=== PATIENT | female | born 2000 | race Caucasian/White ===

== ENCOUNTER 2021-07-31 16:37 | Outpatient (CLI) | payer OTHER ==
[~2021-07-31 16:37] MED LIST: ALBUTEROL HFA INH; CETI10TA76 PO; MONT10TA17 PO; MULT-658 PO; NORE-66 PO; [UNRECOGNIZED DRUG - OTHER]
== END 2021-07-31 23:59 | disposition home or self-care (01) ==
LOC: STAR 16:37
PROVIDERS: ATTEND Otolaryngology
DX: Z02.9 Encounter for administrative examinations, unspecified (principal)

== ENCOUNTER 2021-08-05 08:15 | Day surgery (SDC) | payer OTHER ==
[~2021-08-05] VITALS: Ht 172.7 cm; Wt 96.1 kg
[~2021-08-05 08:15] MED LIST changes: +BACITRACIN OINT 500U/GM, 15 GM ONE; +EPINEPHRINE 1 MG/ML, 1ML ONE; +EPINEPHRINE TOPICAL SOLN 1 MG/ML, 30ML ONE; +FENTANYL PF 250 MCG/5ML ONE; +FLUORESCEIN SODIUM 500 MG/5 ML ONE; +LIDOCAINE/PF 1%, 30ML ONE; +MIDAZOLAM 1 MG/ML, 2ML ONE; +OXYMETAZOLINE NASAL SPRAY 0.05%,30ML ONE
[2021-08-05] MEDS ORDERED: PROPOFOL 50 ML ONE ×4 (08:25→11:39)
[2021-08-05 08:53] VITALS: BP 126/91
[2021-08-05 08:58] LABS: HCG UR SG 1.023 (1.003-1.030)
[2021-08-05] MEDS ORDERED: CHLORHEXIDINE 15 ML UDC PO ONE (09:00)
[2021-08-05] MEDS ORDERED: LACTATED RINGERS 1,000 ML IV SCH (09:00)
[2021-08-05] MEDS ORDERED: REMIFENTANIL 2 MG ONE (11:03)
[2021-08-05] MEDS ORDERED: MEPERIDINE/PF 25MG/0.5ML IVPush PRN (12:00)
[2021-08-05] MEDS ORDERED: FENTANYL PF 100 MCG/2ML IV PRN (12:00)
[2021-08-05] MEDS ORDERED: ACETAMINOPHEN 325 MG TABLET PO PRN (12:00)
[2021-08-05] MEDS ORDERED: MIDAZOLAM 1 MG/ML, 2ML IV PRN (12:00)
[2021-08-05] MEDS ORDERED: LABETALOL 5MG/ML, 20ML IV PRN (12:00)
[2021-08-05] MEDS ORDERED: hydrALAzine 20 MG/ML, 1ML IV PRN (12:00)
[2021-08-05] MEDS ORDERED: ONDANSETRON 2MG/ML, 2ML IVPush PRN (12:00)
[2021-08-05] MEDS ORDERED: PROMETHAZINE 25 MG/ML, 1ML IVPush PRN (12:00)
[2021-08-05] MEDS ORDERED: METHOCARBAMOL 1,000 MG in DEXTROSE 5% 100 ML IV PRN (12:00)
[2021-08-05] MEDS ORDERED: HALOPERIDOL 5 MG/ML IV PRN (12:00)
[2021-08-05] MEDS ORDERED: HYDROmorphone 1 MG/ML, 1ML INJ IVPush PRN (12:00)
[2021-08-05] MEDS ORDERED: FENTANYL PF 100 MCG/2ML ONE (12:37)
[2021-08-05] MEDS ORDERED: OXYcodone 5 MG/5 ML ORAL.SOL UDC ONE (12:37)
[2021-08-05] MEDS: OXYcodone 5 MG/5 ML ORAL.SOL UDC PO PRN ×2 (12:48→13:08)
== END 2021-08-05 14:20 | disposition home or self-care (01) ==
LOC: OR 08:15
PROVIDERS: ATTEND Otolaryngology
DX: J32.0 Chronic maxillary sinusitis (principal); J31.0 Chronic rhinitis; J45.909 Unspecified asthma, uncomplicated; Z20.822 Contact with and (suspected) exposure to COVID-19; Z79.899 Other long term (current) drug therapy; Z91.013 Allergy to seafood; Z91.048 Other nonmedicinal substance allergy status; Z82.49 Family history of ischemic heart disease and other diseases of the circulatory system
CPT/HCPCS: 31240; 31255; 31267; 81025; 87070; 87075; 87205; 88304; 88311; J0171; J2250; J2704; J3010; J7120; U0003; U0005

== ENCOUNTER 2021-08-12 11:52 | Day surgery (SDC) | payer MEDICAID, OTHER ==
[~2021-08-12] VITALS: Ht 172.7 cm; Wt 94.7 kg
[~2021-08-12 11:52] MED LIST changes: -BACITRACIN OINT 500U/GM, 15 GM ONE; -EPINEPHRINE 1 MG/ML, 1ML ONE; -EPINEPHRINE TOPICAL SOLN 1 MG/ML, 30ML ONE; -FENTANYL PF 250 MCG/5ML ONE; -FLUORESCEIN SODIUM 500 MG/5 ML ONE; -LIDOCAINE/PF 1%, 30ML ONE; -MIDAZOLAM 1 MG/ML, 2ML ONE; -OXYMETAZOLINE NASAL SPRAY 0.05%,30ML ONE
[2021-08-12 12:36] VITALS: BP 123/82
[2021-08-12] MEDS ORDERED: LIDOCAINE 4%, 4 ML SYR/CANN TP ONE (14:19)
== END 2021-08-12 14:35 | disposition home or self-care (01) ==
LOC: OR 11:52
PROVIDERS: ATTEND Otolaryngology
DX: J32.0 Chronic maxillary sinusitis (principal); J34.89 Other specified disorders of nose and nasal sinuses; Z20.822 Contact with and (suspected) exposure to COVID-19
CPT/HCPCS: 87635